=== PATIENT | male | born 1990 | race Caucasian/White ===

== ENCOUNTER 2016-08-31 10:02 | Emergency (ER) | payer OTHER ==
[~2016-08-31] VITALS: Ht 170.2 cm; Wt 76.2 kg
--- NOTE | 2016-08-31 10:56 | PHYS DOC ---
Past Medical History Past Medical History: Asthma Past Surgical History: No Surgical History Alcohol Use: None Drug Use: Marijuana Adult General Chief Complaint Chief Complaint: TESTICULAR PAIN OR INJURY HPI HPI Patient is a 26 year old male with history of asthma who presents today with mild left testicular pain and swelling that he noted 2 days ago. Patient denies any concern for STDs. Denies any urgency frequency or dysuria. Denies any penile discharge. Review of Systems Review of Systems Constitutional: Denies fever or chills [] Eyes: Denies change in visual acuity, redness, or eye pain [] HENT: Denies nasal congestion or sore throat [] Respiratory: Denies cough or shortness of breath [] Cardiovascular: No additional information not addressed in HPI [] GI: Denies abdominal pain, nausea, vomiting, bloody stools or diarrhea [] : Left testicular pain and swelling Musculoskeletal: Denies back pain or joint pain [] Integument: Denies rash or skin lesions [] Neurologic: Denies headache, focal weakness or sensory changes [] Endocrine: Denies polyuria or polydipsia [] Allergies Allergies Allergies Coded Allergies Type Severity Reaction Last Updated Verified amoxicillin Allergy Intermediate 08/31/16 Yes clavulanic acid Allergy Intermediate 08/31/16 Yes Physical Exam Physical Exam Constitutional: Well developed, well nourished, no acute distress, non-toxic appearance. [] HENT: Normocephalic, atraumatic, bilateral external ears normal, oropharynx moist, no oral exudates, nose normal. [] Eyes: PERRLA, EOMI, conjunctiva normal, no discharge. [] Neck: Normal range of motion, no tenderness, supple, no stridor. [] Cardiovascular:Heart rate regular rhythm, no murmur [] Lungs & Thorax: Bilateral breath sounds clear to auscultation [] Abdomen: Bowel sounds normal, soft, no tenderness, no masses, no pulsatile masses. [] Male exam External male with no obvious redness or swelling. A palpable mass approx. 0.5X0.5cm on the left epididymal cord Skin: Warm, dry, no erythema, no rash. [] Back: No tenderness, no CVA tenderness. [] Extremities: No tenderness, no cyanosis, no clubbing, ROM intact, no edema. [] Neurologic: Alert and oriented X 3, normal motor function, normal sensory function, no focal deficits noted. [] Psychologic: Affect normal, judgement normal, mood normal. [] Current Patient Data Vital Signs Vital Signs Date Time Temp Pulse Resp B/P Pulse Ox O2 Delivery O2 Flow Rate FiO2 08/31/16 10:12 98.1 54 16 131/67 97 Room Air 98.1 Lab Values Laboratory Tests Test 08/31/16 12:00 Urine Collection Type Unknown Urine Color Yellow Urine Clarity Cloudy Urine pH 7.5 Urine Specific [place] 1.025 Urine Protein Negativemg/dL (NEG-TRACE) Urine Glucose (UA) Negativemg/dL (NEG) Urine Ketones (Stick) Negativemg/dL (NEG) Urine Blood Negative (NEG) Urine Nitrite Negative (NEG) Urine Bilirubin Negative (NEG) Urine Urobilinogen Dipstick 0.2mg/dL (0.2 mg/dL) Urine Leukocyte Esterase Negative (NEG) Urine RBC 0/HPF (0-2) Urine WBC 0/HPF (0-4) Urine Amorphous Sediment Present/HPF Urine Bacteria 0/HPF (0-FEW) EKG EKG [] Radiology/Procedures Radiology/Procedures []PROCEDURE: TESTICULAR/SCROTUM TESTICULAR/SCROTUM History:Painful left testicle, mass Comparison: None Findings:Multiple grayscale, color, duplex spectral analysis waveform images of the testicles and scrotum are submitted. Right testicle measures 4.5 x 2.8 x 2.3 cm. Left testicle measured 4.2 x 2.8 x 2.2 cm. No intratesticular mass is identified on either side. Testicular parenchyma is homogeneous bilaterally. There is normal low resistance vascularity of interrogated intratesticular vessels bilaterally. There is a simple 0.8 x 0.8 x 0.7 cm left epididymal head cyst. No asymmetric hyperemia is identified of the of the epididymides or testicles. Impression: 1.There is a simple left epididymal head cyst 0.8 cm, no other abnormality demonstrated. There is no evidence of intratesticular mass or testicular torsion. DICTATED and SIGNED BY: CHIKI OCONNOR MD DATE: 08/31/16 1053 CC: CHRIS WU APRN; NO PCP ~ Course & Med Decision Making Course & Med Decision Making Pertinent Labs and Imaging studies reviewed. (See chart for details) Patient is in the ED with testicular pain and swelling for 2 days no concerns for stds. urine was sent to lab. Urine is negative for infection. Testicular ultrasound was noted for a simple left epididymal head cyst 0.8 cm, no other abnormality demonstrated. Patient was discharged with instructions to follow-up with doctor Juan J urologist in the next 7 days. Provided return precautions. Dragon Disclaimer Dragon Disclaimer This electronic medical record was generated, in whole or in part, using a voice recognition dictation system. Departure Departure Impression: Primary Impression: Epididymal cyst Disposition: HOME, SELF-CARE Condition: STABLE Referrals: KATHARINA RODRIGUEZ DO see the provided doctor in one week Patient Instructions: Cyst Removal Additional Instructions: You have an epididymal cyst. Please follow up with Dr. Rodriguez urologist as soon as you can. CHRIS WU APRN Aug 31, 2016 10:56
--- NOTE | 2016-08-31 11:30 | RAD ---
TESTICULAR/SCROTUM History:Painful left testicle, mass Comparison: None Findings:Multiple grayscale, color, duplex spectral analysis waveform images of the testicles and scrotum are submitted. Right testicle measures 4.5 x 2.8 x 2.3 cm. Left testicle measured 4.2 x 2.8 x 2.2 cm. No intratesticular mass is identified on either side. Testicular parenchyma is homogeneous bilaterally. There is normal low resistance vascularity of interrogated intratesticular vessels bilaterally. There is a simple 0.8 x 0.8 x 0.7 cm left epididymal head cyst. No asymmetric hyperemia is identified of the of the epididymides or testicles. Impression: 1.There is a simple left epididymal head cyst 0.8 cm, no other abnormality demonstrated. There is no evidence of intratesticular mass or testicular torsion.
[2016-08-31 12:17] LABS: BILIRUBIN,URINE NEGATIVE (NEG); GLUCOSE,URINE NEGATIVE (NEG); NITRITE,URINE NEGATIVE (NEG); PH,URINE 7.5; PROTEIN,URINE NEGATIVE (NEG-TRACE); UROBILINOGEN,URINE 0.2 mg/dL (0.2 mg/dL)
[2016-08-31 12:29] LABS: BACTERIA,URINE 0 /HPF (0-FEW); RBC,URINE 0 /HPF (0-2); WBC,URINE 0 /HPF (0-4)
[2016-08-31 13:00] VITALS: BP 105/57
== END 2016-08-31 13:35 | disposition home or self-care (01) ==
LOC: ER 10:02
DX: N50.3 Cyst of epididymis (principal); J45.909 Unspecified asthma, uncomplicated; F12.10 Cannabis abuse, uncomplicated; Z88.1 Allergy status to other antibiotic agents
CPT/HCPCS: 76870; 81001; 87491; 87591; 99285-25